=== PATIENT | male | born 1950 | race Caucasian/White ===

== ENCOUNTER 2018-11-05 14:02 | Outpatient (CLI) | payer OTHER ==
[2018-11-05 15:06] LABS: MICROSCOPIC NOT IND
[2018-11-05] MEDS ORDERED: AMLO-150 PO (15:08)
[2018-11-05] MEDS ORDERED: ATOR10TA PO (15:08)
== END 2018-11-05 23:59 | disposition home or self-care (01) ==
LOC: STAR 14:02
PROVIDERS: ATTEND Urology
DX: Z01.818 Encounter for other preprocedural examination (principal); N20.0 Calculus of kidney
CPT/HCPCS: 81003; 87086; 93005

== ENCOUNTER 2018-11-12 05:45 | Day surgery (SDC) | payer OTHER ==
[~2018-11-12] VITALS: Ht 175.3 cm; Wt 115.0 kg
[~2018-11-12 05:45] MED LIST: AMLO-150 PO; ATOR10TA PO
[2018-11-12] MEDS ORDERED: LACTATED RINGERS 1,000 ML IV SCH (06:10)
[2018-11-12] MEDS ORDERED: MIDAZOLAM 1 MG/ML, 2ML ONE (07:35)
[2018-11-12] MEDS ORDERED: PROPOFOL 10 MG/ML, 20ML ONE (07:35)
[2018-11-12] MEDS ORDERED: FENTANYL PF 100 MCG/2ML ONE (07:36)
[2018-11-12] MEDS ORDERED: CIPROFLOXACIN/PMX 400MG/200ML 200 ML ONE (07:51)
[2018-11-12] MEDS ORDERED: OXYcodone 5 MG/5 ML ORAL.SOL UDC PO PRN (09:00)
[2018-11-12] MEDS ORDERED: FENTANYL PF 100 MCG/2ML IV PRN (09:00)
[2018-11-12] MEDS ORDERED: LABETALOL 5MG/ML, 20ML IV PRN (09:00)
[2018-11-12] MEDS ORDERED: HYDROmorphone 1 MG/ML, 1ML IV PRN (09:00)
[2018-11-12] MEDS ORDERED: MEPERIDINE/PF 25MG/0.5ML IVPush PRN (09:00)
[2018-11-12] MEDS ORDERED: MIDAZOLAM 1 MG/ML, 2ML IV PRN (09:00)
[2018-11-12] MEDS ORDERED: ONDANSETRON 2MG/ML, 2ML IVPush PRN (09:00)
== END 2018-11-12 10:40 | disposition home or self-care (01) ==
LOC: OUT 05:45
PROVIDERS: ATTEND Urology
DX: N20.0 Calculus of kidney (principal); Z88.0 Allergy status to penicillin; I10 Essential (primary) hypertension; E78.00 Pure hypercholesterolemia, unspecified
CPT/HCPCS: 50590; J0744; J2250; J2704; J3010; J7120